=== PATIENT | female | born 1965 | race Caucasian/White ===

== ENCOUNTER 2017-06-12 18:19 | Emergency (ER) | payer OTHER ==
--- NOTE | 2017-06-12 19:14 | ER Document Report ---
ED General - General Chief Complaint: Abscess Stated Complaint: LEG,THROAT PAIN Time Seen by Provider: 06/12/17 18:56 Mode of Arrival: Ambulatory Information source: Patient TRAVEL OUTSIDE OF THE [place] IN LAST 30 DAYS: No - HPI Patient complains to provider of: Swelling to legs, sore throat Notes: Patient is a 51-year-old female who presents to the emergency room today complaining of bumpy swelling to her lower extremities that has been going on for quite some time but seems to be worsening over the past few weeks, they are nonpainful, she denies any injury, no redness, no drainage, she also complains of difficulty swallowing her own spit at times with a sore throat, she states she is able to eat and drink okay, denies any acid reflux, no history of any thyroid disorder, patient reports some intermittent chest pain which has not occurred at all today, she denies any shortness of breath, no cough, cold or congestion, no fever or chills - Related Data Allergies/Adverse Reactions: No Known Allergies Allergy (Verified 06/12/17 18:34) Past Medical History - General Information source: Patient - Social History Smoking Status: Unknown if Ever Smoked Family History: CAD - father and brother had SD's in their late 40's - Past Medical History Cardiac Medical History: Reports: Hx Hypercholesterolemia, Hx Hypertension - previously took meds but was taken off Denies: Hx Coronary Artery Disease, Hx Heart Attack Pulmonary Medical History: Denies: Hx Asthma, Hx Bronchitis, Hx COPD, Hx Pneumonia Neurological Medical History: Denies: Hx Cerebrovascular Accident, Hx Seizures Renal/ Medical History: Denies: Hx Peritoneal Dialysis Musculoskeltal Medical History: Denies Hx Arthritis Past Surgical History: Reports: Hx Abdominal Surgery - Immunizations Immunizations up to date: Yes Hx Diphtheria, Pertussis, Tetanus Vaccination: Yes Review of Systems - Review of Systems Constitutional: No symptoms reported EENT: See HPI Cardiovascular: No symptoms reported Respiratory: No symptoms reported Gastrointestinal: No symptoms reported Genitourinary: No symptoms reported Female Genitourinary: No symptoms reported Musculoskeletal: See HPI Skin: No symptoms reported Hematologic/Lymphatic: No symptoms reported Neurological/Psychological: No symptoms reported -: Yes All other systems reviewed and negative Physical Exam - Vital signs Vitals: Temp Pulse Resp BP Pulse Ox 98.7 F 97 18 146/109 H 99 06/12/17 18:32 06/12/17 18:32 06/12/17 18:32 06/12/17 18:32 06/12/17 18:32 - Notes Notes: - General General appearance: Appears well, Alert In distress: None - HEENT Head: Normocephalic, Atraumatic Eyes: Normal Conjunctiva: Normal Extraocular movements intact: Yes Eyelashes: Normal Pupils: PERRL - Respiratory Respiratory status: No respiratory distress - Cardiovascular Rhythm: Regular - Abdominal Inspection: Normal - Back Back: Normal - Extremities General upper extremity: Normal inspection General lower extremity: Normal inspection - Neurological Neuro grossly intact: Yes Orientation: AAOx4 Richy Coma Scale Eye Opening: Spontaneous [place] Coma Scale Verbal: Oriented [place] Coma Scale Motor: Obeys Commands [place] Coma Scale Total: 15 - Psychological Associated symptoms: Normal affect, Normal mood - Skin Skin Temperature: Warm Skin Moisture: Dry Skin Color: Normal - HEENT Pharynx: Normal. No: Erythema, Exudate, Uvular edema, Potential airway comprom. Neck: Normal. No: Lymphadenopathy, Neck mass, Thyroid nodule, Thyromegally - Extremities General lower extremity: Other - Varicose veins present in lower extremities which are easily compressible, nontender, no erythema Course - Re-evaluation Re-evalutation: 06/12/17 19:17 Patient's physical exam findings are unremarkable except for lower extremity varicose veins, she has had intermittent chest pain but none today, and states she would prefer to follow-up with her primary care provider in the next 1-2 days, advised to return if symptoms worsen, patient acknowledges understanding and agreement with this plan - Vital Signs Vital signs: Temp Pulse Resp BP Pulse Ox 98.7 F 97 18 146/109 H 99 06/12/17 18:32 06/12/17 18:32 06/12/17 18:32 06/12/17 18:32 06/12/17 18:32 Discharge - Discharge Clinical Impression: Varicose veins of both lower extremities, Sore throat Condition: Stable Disposition: HOME, SELF-CARE Instructions: Sore Throat ([facility]), Varicose Veins ([facility]) Additional Instructions: Follow up with your primary care provider in one to 2 days. Return to the emergency room immediately if symptoms worsen or any additional concerns.
[2017-06-12 19:56] VITALS: BP 144/78
== END 2017-06-12 19:56 | disposition home or self-care (01) ==
LOC: ER 18:19
DX: I83.93 Asymptomatic varicose veins of bilateral lower extremities (principal); L02.419 Cutaneous abscess of limb, unspecified; R07.0 Pain in throat
CPT/HCPCS: 99283

== ENCOUNTER 2017-08-18 06:53 | Emergency (ER) | payer OTHER ==
[2017-08-18 07:02] VITALS: BP 134/78
--- NOTE | 2017-08-18 07:08 | ER Document Report ---
HPI - HPI Patient complains to provider of: Left low back pain Onset: Other - July 02 Onset/Duration: Persistent, Waxing and waning, Worse Quality of pain: Burning, Stabbing, Throbbing Pain Level: 5 Context: 51-year-old female complaining of left low back pain over the sacral iliac joint which radiates into her left hip and down her left leg. She was given Motrin and Flexeril by her primary care doctor at [facility]. She was also given a week of steroids which did not help. No fever, no IV drug use, no saddle anesthesia. Associated Symptoms: None Exacerbated by: Movement Relieved by: Denies - ROS ROS below otherwise negative: Yes Systems Reviewed and Negative: Yes All other systems reviewed and negative - REPRODUCTIVE Reproductive: DENIES: : Past Medical History - General Information source: Patient - Social History Smoking Status: Current Every Day Smoker Frequency of alcohol use: None Drug Abuse: None Occupation: property supervisor Lives with: Spouse/Significant other Family History: CAD - father and brother had WI's in their late 40's - Past Medical History Cardiac Medical History: Reports: Hx Hypercholesterolemia, Hx Hypertension - previously took meds but was taken off Renal/ Medical History: Denies: Hx Peritoneal Dialysis Past Surgical History: Reports: Hx Abdominal Surgery - Immunizations Immunizations up to date: Yes Hx Diphtheria, Pertussis, Tetanus Vaccination: Yes Vertical Provider Document - CONSTITUTIONAL Agree With Documented VS: Yes Exam Limitations: No Limitations General Appearance: Mild Distress - INFECTION CONTROL TRAVEL OUTSIDE OF THE [place] IN LAST 30 DAYS: No - HEENT HEENT: Normocephalic - NECK Neck: Supple - RESPIRATORY Respiratory: Breath Sounds Normal, No Respiratory Distress O2 Sat by Pulse Oximetry: 99 - CARDIOVASCULAR Cardiovascular: Regular Rate, Regular Rhythm - BACK Back: Normal Inspection Notes: tender left SI joint, overlying muscles - MUSCULOSKELETAL/EXTREMETIES Musculoskeletal/Extremeties: MAEW, FROM, Tender - see above - NEURO Level of Consciousness: Awake, Alert, Appropriate Motor/Sensory: No Motor Deficit, No Sensory Deficit Deep Tendon Reflexes: 2+ - Bilateral ankle and patellar - DERM Integumentary: Warm, Dry, No Rash Course - Re-evaluation Re-evalutation: 08/18/17 08:01 Pain level reduced to 2/5 with downward pressure of left pelvis, laying supine over a pillow, and laying on her side with a pillow between her knees. Have given the patient handout of low back stretches and a referral to chiropractic. 08/18/17 08:03 - Vital Signs Vital signs: Temp Pulse Resp BP Pulse Ox 97.5 F 74 16 134/78 H 99 08/18/17 06:59 08/18/17 06:59 08/18/17 06:59 08/18/17 06:59 08/18/17 06:59 Discharge - Discharge Clinical Impression: Left sacral ileitis, Sciatica Condition: Good Disposition: HOME, SELF-CARE Instructions: Chiropractor, Toradol Injection ([facility]), Ibuprofen (General) ([facility]) , Muscle Relaxers ([facility]) Additional Instructions: warm compress stretches as we discussed see the chiropractor to er if worse Please complete the patient satisfaction survey if you get one, and return it.. If you do not receive a survey, then you can go to the [facility] website, [email or web address] and place your comments about your very good care. Thank you very much. It was a pleasure being your medical provider today. Forms: Return to Work Referrals: ANTHONY GANDHI MD [NO LOCAL MD] - Follow up as needed XIN FORD DC [CHIROPRACTOR] - Follow up as needed
[2017-08-18] MEDS ORDERED: KETOROLAC TROMETHAMINE 60 MG/2 ML SDV IM ONE (07:44)
[2017-08-18] MEDS ORDERED: DIAZEPAM 5 MG TABLET PO ONE (08:28)
[2017-08-18] MEDS ORDERED: OXYCODONE-ACETAMINOPHEN 5-325 MG TABLET PO ONE (08:28)
== END 2017-08-18 08:45 | disposition home or self-care (01) ==
LOC: ER 06:53
DX: M54.30 Sciatica, unspecified side (principal); K52.9 Noninfective gastroenteritis and colitis, unspecified; M54.5 Low back pain; M25.552 Pain in left hip; M79.605 Pain in left leg; Z79.899 Other long term (current) drug therapy; F17.200 Nicotine dependence, unspecified, uncomplicated
CPT/HCPCS: 99283; 96372; J1885

== ENCOUNTER → 2017-09-04 | Outpatient (CLI) | payer OTHER ==
--- NOTE | 2017-09-04 11:19 | WOMENS IMAGING REPORT ---
EXAM DESCRIPTION: 3D SCREENING MAMMO BILAT COMPLETED DATE/TIME: 09/04/2017 8:05 am REASON FOR STUDY: SCREENING MAMMO Z12.31 ENCNTR SCREEN MAMMOGRAM FOR MALIGNANT NEOPLASM OF LANG COMPARISON: None. TECHNIQUE: Standard craniocaudal and mediolateral oblique views of each breast recorded using digita l acquisition and breast tomosynthesis. LIMITATIONS: None. FINDINGS: No masses, calcifications or architectural distortion. No areas of suspicion. Read with the assistance of CAD. .[facility] [place] - R2 Cenova Version 1.3 .[facility] - R2 Cenova Version 1.3 .[facility] - R2 Cenova Version 2.4 .[facility] [place] - R2 Cenova Version 2.4 .[facility] - R2 Twister Doffer Version 9.2 IMPRESSION: NORMAL MAMMOGRAM. BIRADS 1. BREAST DENSITY: b. There are scattered areas of fibroglandular density. BIRAD: 1 NEGATIVE RECOMMENDATION: ROUTINE SCREENING COMMENT: The patient has been notified of the results by letter per SA requirements. Additional no tification policies are in place for contacting patient with suspicious or incomplete findings. Quality ID #[id number]: The [employer] recommends an annual screening mammogram for women aged 40 years or over. This facility utilizes a reminder system to ensure that all patients receive reminder letters, and/or direct phone calls for appointments. This includes reminders for routine scr eening mammograms, diagnostic mammograms, or other Breast Imaging Interventions when appropriate. Th is patient will be placed in the appropriate reminder system. The [employer] (ACR) has developed recommendations for screening MRI of the breast s in certain patient populations, to be used in conjunction with mammography. Breast MRI surveillanc e may be appropriate for women with more than 20% lifetime risk of developing breast cancer as deter mined by genetic testing, significant family history of the disease, or history of mantle radiation f or Hodgkins Disease. ACR Practice Guidelines 2008. DBT Technology DBT is a type of tomographic mammography. With conventional mammography, overlapping breast tissue ma y make lesions difficult to detect, even with good compression. DBT uses an x-ray tube that rotates a round the breast, taking images at different angles. These images are then combined to create thin sl ices of the breast that the radiologist can view as a 3D reconstruction. The [employer] unit can perform full-field digital mammograms (2D imaging); or DBT (3D imaging); or both, in a combination mode that quickly performs both the mammogram and the tomosynthesis scan while the breast is still compressed. PQRS 6045F: Fluoroscopic imaging is not utilized for breast tomosynthesis. TECHNICAL DOCUMENTATION: FINDING NUMBER: (1) ASSESSMENT: (1) JOB ID: [id number] [employer]- All Rights Reserved
== END ==
LOC: WI 07:48
PROVIDERS: ATTEND Family Medicine
DX: Z12.31 Encounter for screening mammogram for malignant neoplasm of breast (principal)
CPT/HCPCS: 77063; G0202; 77067

== ENCOUNTER 2017-11-28 17:35 | Emergency (ER) | payer OTHER ==
[2017-11-28] MEDS ORDERED: LORATADINE 10 MG TABLET PO ONE (18:21)
[2017-11-28] MEDS ORDERED: PSEUDOEPHEDRINE HCL 30 MG TABLET PO ONE (18:21)
[2017-11-28] MEDS ORDERED: GUAIFENESIN 600 MG TABLET.SA PO ONE (18:21)
--- NOTE | 2017-11-28 18:42 | RADIOLOGY REPORT (SQ) ---
EXAM DESCRIPTION: CHEST PA/LAT COMPLETED DATE/TIME: 11/28/2017 6:32 pm REASON FOR STUDY: cough congestion COMPARISON: 03/07/2015 NUMBER OF VIEWS: Two view. TECHNIQUE: Frontal and lateral radiographic views of the chest acquired. LIMITATIONS: None. FINDINGS: LUNGS AND PLEURA: No opacities, masses or pneumothorax. No pleural effusion. MEDIASTINUM AND HILAR STRUCTURES: No masses or contour abnormalities. HEART AND VASCULATURE: Heart normal size. No evidence for failure. BONY STRUCTURES: No acute findings. HARDWARE: None. OTHER: No other significant finding. IMPRESSION: NO SIGNIFICANT RADIOGRAPHIC FINDING IN THE CHEST. TECHNICAL DOCUMENTATION: JOB ID: [id number] [employer]- All Rights Reserved Reading location - IP/workstation name: [email or web address]
--- NOTE | 2017-11-28 18:47 | ER Document Report ---
ED Flu Like - General Chief Complaint: Flu Symptoms Stated Complaint: FLU SYMPTOMS Time Seen by Provider: 11/28/17 17:56 Mode of Arrival: Ambulatory Notes: 52-year-old female presents to ED for complaint of fever chills cough body aches and wheezing 3 days. She states she has having flulike symptoms and did not have a flu shot. Spouse states that she has felt hot but she has not taken her temperature. TRAVEL OUTSIDE OF THE [place] IN LAST 30 DAYS: No - HPI Onset: Other - 3 days Timing/Duration: Intermittent Quality of pain: Achy - Body aches Severity: Moderate Pain Level: 4 CO exposure: No Associated symptoms: Body/muscle aches, Chills, Nonproductive cough, Fever, Rhinnorhea, Sinus pain/drainage, Other - Patient states she has been wheezing Similar symptoms previously: Yes Recently seen / treated by doctor: No - Related Data Allergies/Adverse Reactions: No Known Allergies Allergy (Verified 08/18/17 07:38) Past Medical History - General Information source: Patient - Social History Smoking Status: Former Smoker Cigarette use (# per day): No Chew tobacco use (# tins/day): No Smoking Education Provided: No Frequency of alcohol use: None Drug Abuse: None Occupation: Works at [employer] Lives with: Family Family History: CAD - father and brother had KS's in their late 40's, Hyperlipidemia, Hypertension, Malignancy. denies: Arthritis, COPD, CVA, DM, Thyroid Disfunction Patient has suicidal ideation: No Patient has homicidal ideation: No - Past Medical History Cardiac Medical History: Reports: Hx Hypercholesterolemia, Hx Hypertension - previously took meds but was taken off Pulmonary Medical History: Reports: None EENT Medical History: Reports: None Neurological Medical History: Reports: None Endocrine Medical History: Reports: None Renal/ Medical History: Reports: None Malignancy Medical History: Reports: None GI Medical History: Reports: None Musculoskeltal Medical History: Reports None Skin Medical History: Reports None Psychiatric Medical History: Reports: None Traumatic Medical History: Reports: None Infectious Medical History: Reports: None Past Surgical History: Reports: Other - Removal of nonmalignant skin grafts - Immunizations Immunizations up to date: Yes Hx Diphtheria, Pertussis, Tetanus Vaccination: Yes Review of Systems - Review of Systems Notes: Constitutional: [PRESENT: as per HPI. ABSENT: weight gain, weight loss]Fever chills headache Eyes: [ABSENT: visual disturbances] Ears: [ABSENT: hearing changes] Nasopharyngeal: Runny nose cough congestion Cardiovascular: [ABSENT: chest pain, dyspnea on exertion, edema, orthropnea, palpitations] Respiratory: Nonproductive cough and wheezing Gastrointestinal: [ABSENT: abdominal pain, constipation, diarrhea, hematemesis, hematochezia, nausea, vomiting] Genitourinary: [ABSENT: dysuria, hematuria] Musculoskeletal: [ABSENT: joint swelling] Integumentary: [ABSENT: rash, wounds] Neurological: [ABSENT: abnormal gait, abnormal speech, confusion, dizziness, focal weakness, syncope] Psychiatric: [ABSENT: anxiety, depression, homicidal ideation, suicidal ideation ] Endocrine: [ABSENT: cold intolerance, heat intolerance, menstrual abnormalities , polydipsia, polyuria] Hematologic/Lymphatic: [ABSENT: easy bleeding, easy bruising, lymphadenopathy] Physical Exam - Vital signs Vitals: Temp Pulse BP Pulse Ox 99.3 F 92 157/66 H 98 11/28/17 17:42 11/28/17 17:42 11/28/17 17:42 11/28/17 17:42 - Notes Notes: PHYSICAL EXAMINATION: GENERAL: Well-appearing, well-nourished and in no acute distress. HEAD: Atraumatic, normocephalic. EYES: Pupils equal round and reactive to light, extraocular movements intact, conjunctiva are normal. ENT: Erythematous swollen nasal turbinates, red oropharynx with postnasal drip without exudates. Moist mucous membranes. NECK: Normal range of motion, supple without lymphadenopathy LUNGS: No rales or rhonchi. Mild expiratory wheezes HEART: Regular rate and rhythm without murmurs ABDOMEN: Soft, nontender, nondistended abdomen. No guarding, no rebound. No masses appreciated. Female : deferred Musculoskeletal: Normal range of motion, no pitting or edema. No cyanosis. NEUROLOGICAL: Cranial nerves grossly intact. Normal speech, normal gait. Normal sensory, motor exams PSYCH: Normal mood, normal affect. SKIN: Warm, Dry, normal turgor, no rashes or lesions noted. Course - Re-evaluation Re-evalutation: 11/29/17 01:40 Patient was treated with prednisone and albuterol for her wheezing, Sudafed Mucinex Claritin and Tylenol for her cough and cold symptoms with body aches. Patient was given a prescription for an albuterol inhaler and prednisone. Patient instructed to follow-up with primary doctor. X-rays were negative for any acute changes and was discussed with patient. Report of x-ray given to patient. Patient was able to verbalize understanding of instructions. - Vital Signs Vital signs: Temp Pulse Resp BP Pulse Ox 99.3 F 92 20 140/70 H 96 11/28/17 17:42 11/28/17 19:25 11/28/17 19:25 11/28/17 19:25 11/28/17 19:25 - Diagnostic Test Radiology reviewed: Image reviewed, Reports reviewed Discharge - Discharge Clinical Impression: URI (upper respiratory infection) Qualifiers: URI type: unspecified URI Qualified Code(s): J06.9 - Acute upper respiratory infection, unspecified Condition: Stable Disposition: HOME, SELF-CARE Instructions: Family Physicians / Practices Additional Instructions: UPPER RESPIRATORY ILLNESS: You have a viral infection of the respiratory passages -- a "cold." This common infection causes nasal congestion, drainage, and often sore throat and cough. It is highly contagious. The disease usually lasts about 10 to 14 days. There is no "cure" for the viral infection -- it must run its course. If there is a complication, such as bacterial infection in the nose, sinuses, middle ear, or bronchial tubes, antibiotics may be required. The antibiotics won't affect the virus. Drink plenty of fluids. A humidifier may help. An expectorant medication or decongestant may make you more comfortable. Use acetaminophen or ibuprofen for fever or aches. See the doctor if fever persists over two days, if there is any significant worsening of your symptoms, or if you simply fail to improve as expected. BRONCHOSPASM: You have tightness in the bronchial tubes, called bronchospasm. This often occurs with bronchial infections. Allergies, inhaled chemicals, and polluted or cold air can also provoke bronchospasm. It's more likely in patients with asthma in the family. Emergency treatment of bronchospasm may include adrenaline shots or bronchodilator aerosol. You may feel lightheaded and have a rapid pulse for an hour or two. Rest and get plenty of fluids. At home, we'll treat you with a bronchodilator inhaler. Antibiotics and corticosteroids may be required for some patients. Until you recover, avoid chemical fumes, dusts, pollens, and exercising in very cold or dry air. If you smoke, stop now!! If you develop a fever, increased wheezing, chest pain, or severe shortness of breath, you should contact the doctor immediately. DECONGESTANT MEDICATION: A decongestant medicine has been prescribed. Often this medicine is combined in the same tablet with an antihistamine or expectorant. This type of medicine is helpful in treating a bad cold or sinus condition, as well as in treatment of the nasal congestion of hay fever. It is not of much benefit for lung infections. Decongestant medicines are related to stimulants. They can cause an increase in blood pressure and heart rate. Persons with heart disease and high blood pressure should not take decongestants without discussing this with the physician. If you develop palpitations, chest pain, headache, or tremors, stop the medicine and consult your physician. COUGH-SUPPRESSANT & EXPECTORANT MEDICATION: You are to use a cough medication as needed for relief of symptoms. This medicine is a combination of an expectorant (to make the mucous thinner and more easily "coughed up") and a cough suppressant (to reduce the frequency of coughing). The cough-suppressant medicine is related to narcotics. You may experience mild nausea and sleepiness. Some patients who are very sensitive to narcotics may have stomach pain from this medicine. Taking the medicine with food reduces these side effects. Do not drive or work with machinery until you know how this medicine affects you. The expectorant should have no side effects. Iodine-containing expectorants (such as organidin) should not be taken by persons with active thyroid disease unless approved by your doctor. Call the doctor if you develop shortness of breath, hives, rash, itching, lightheadedness, or severe nausea and vomiting. INHALED BRONCHODILATORS: You have received a treatment of and/or prescription for an inhaled bronchodilator -- a medication which stimulates the airways in the lung to dilate. This improves the flow of air in asthma, bronchitis, and emphysema. These medicines have some similarity to adrenaline, and can cause similar side effects: shakiness, racing heart, and a sense of nervousness. These side effects decrease with time. Contact your doctor if these side effects are severe. Do not over-use the medicine. Too-frequent use of the inhaler may make it ineffective. Call your doctor if the inhaler is not controlling your symptoms at the prescribed doses. STEROID MEDICATION: You have been given an injection of or oral medicine of the cortisone/ steroid class. This medication is used to control inflammation or allergy. Raj t is usually only given for a short period of time, until the acute process subsides. There are usually no side effects from short-term use of cortisone-like medications. Some persons feel an increased sense of well-being and are not sleepy at bedtime. Long-term use of cortisone medications is best avoided, unless required for a severe condition. If your condition does not remit, or relapses after the course of corticosteroid medication, you should consult your physician. USE OF ACETAMINOPHEN (Tylenol): Acetaminophen may be taken for pain relief or fever control. It's much safer than aspirin, offering a wider range of "safe" dosages. It is safe during . Some brand names are Tylenol, Panadol, Datril, Anacin 3, Tempra, and Liquiprin. Acetaminophen can be repeated every four hours. The following are maximum recommended dosages: >89 pounds or adults 650 mg to 900 mg Acetaminophen can be repeated every four hours. Maximum dose not to exceed 4000 mg a day. FOLLOW-UP CARE: If you have been referred to a physician for follow-up care, call the physician s office for an appointment as you were instructed or within the next two days. If you experience worsening or a significant change in your symptoms, notify the physician immediately or return to the Emergency Department at any time for re-evaluation. Prescriptions: Albuterol Sulfate [Proair HFA Inhalation Aerosol 8.5 gm MDI] 2 puff IH Q4H PRN # 1 mdi PRN Reason: Prednisone 10 mg PO ASDIR PRN #21 tablet PRN Reason: Forms: Elevated Blood Pressure, Return to Work
[2017-11-28] MEDS ORDERED: PREDNISONE 20 MG TABLET PO ONE (18:48)
[2017-11-28] MEDS ORDERED: ACETAMINOPHEN 325 MG TABLET PO ONE (18:57)
[2017-11-28] MEDS: ALBUTEROL SULFATE 0.083% NEB 2.5 MG/3 ML AMPUL NEB SCH ×2 (19:07→19:47)
[2017-11-28 19:52] VITALS: BP 140/70
== END 2017-11-28 19:25 | disposition home or self-care (01) ==
LOC: ER 17:35
DX: R05 Cough (principal); R06.2 Wheezing; M79.1 Myalgia; R50.9 Fever, unspecified; J34.89 Other specified disorders of nose and nasal sinuses; I10 Essential (primary) hypertension; R09.82 Postnasal drip; J06.9 Acute upper respiratory infection, unspecified; Z87.892 Personal history of anaphylaxis
CPT/HCPCS: 99283; 71046; J7512

== ENCOUNTER 2019-12-11 19:05 | Emergency (ER) | payer OTHER ==
[2019-12-11] MEDS ORDERED: ASPIRIN 81 MG TABLET, CHEWABLE PO ONE (20:08)
--- NOTE | 2019-12-11 20:11 | ER Document Report ---
ED Medical Screen (RME) - General Chief Complaint: Chest Pain Stated Complaint: CHEST PAIN Time Seen by Provider: 12/11/19 20:05 Mode of Arrival: Ambulatory Information source: Patient Notes: 54-year-old female presents emergency department with multiple complaints to include chest pain that started today left-sided with cough congestion no bleeding. No complaints of fever vomiting diarrhea. Reports she has been eating cough drops without relief of symptoms. Patient reports she is had this chest pain on and off for years. Patient reports this chest pain has been for the past week. Reports she was admitted here many years ago and told to go to [facility] for a stress test. She never did. Patient reports the chest pain will radiate down to her legs at times if she became nauseated and sweaty. I have greeted and performed a rapid initial assessment of this patient. A comprehensive ED assessment and evaluation of the patient, analysis of test results and completion of the medical decision making process will be conducted by additional ED providers. TRAVEL OUTSIDE OF THE [place] IN LAST 30 DAYS: No - Related Data Allergies/Adverse Reactions: No Known Allergies Allergy (Verified 08/18/17 07:38) Past Medical History - Past Medical History Cardiac Medical History: Reports: Hx Hypercholesterolemia, Hx Hypertension - previously took meds but was taken off Renal/ Medical History: Denies: Hx Peritoneal Dialysis Past Surgical History: Reports: Other - Removal of nonmalignant skin grafts - Immunizations Immunizations up to date: Yes Hx Diphtheria, Pertussis, Tetanus Vaccination: Yes
--- NOTE | 2019-12-11 20:44 | RADIOLOGY REPORT (SQ) ---
EXAM DESCRIPTION: XR CHEST 2 VIEWS COMPLETED DATE/TME: 12/11/2019 20:07 CLINICAL HISTORY: 54 years, Female, dhest pain COMPARISON: November 28, 2017 NUMBER OF VIEWS: 2 TECHNIQUE: LIMITATIONS: None. FINDINGS: The lungs are grossly clear. Minimal atelectasis left lung base. No consolidation or effusion or pneumothorax. IMPRESSION: Mild atelectasis left base, adverse change from prior copyright 2010 [employer]- All Rights Reserved
[2019-12-11 22:31] LABS: ABSOLUTE EOSINOPHILS # (AUTO) 0.1 10^3/uL (0.0-0.6); ABSOLUTE LYMPHOCYTES (AUTO) 2.1 10^3/uL (0.5-4.7); ABSOLUTE MONOCYTES (AUTO) 0.7 10^3/uL (0.1-1.4); ABSOLUTE NEUT (AUTO) 5.4 10^3/uL (1.7-8.2); BASOPHILS % (AUTO) 0.4 % (0-2); EOSINOPHILS % (AUTO) 1.7 % (0-6); HEMATOCRIT 36.7 % (36.0-47.0); HEMOGLOBIN 12.8 g/dL (12.0-15.5); LYMPHOCYTES % (AUTO) 25.2 % (13-45); MEAN CORPUSCULAR HEMOGLOBIN 28.9 pg (27.0-33.4); MEAN CORPUSCULAR HGB CONC 34.9 g/dL (32.0-36.0); MEAN CORPUSCULAR VOLUME 83 fl (80-97); MONOCYTES % (AUTO) 8.8 % (3-13); PLATELET COUNT 275 10^3/uL (150-450); RED BLOOD COUNT 4.43 10^6/uL (3.72-5.28); RED CELL DISTRIBUTION WIDTH 13.6 % (11.5-14.0); SEGMENTED NEUTROPHILS % (AUTO) 63.9 % (42-78); TOTAL CELLS COUNTED % (AUTO) 100 %; WHITE BLOOD COUNT 8.4 10^3/uL (4.0-10.5)
[2019-12-11 22:39] LABS: APPEARANCE,URINE CLOUDY; BILIRUBIN,URINE NEGATIVE (NEGATIVE); COLOR,URINE AMBER; GLUCOSE, URINE NEGATIVE (NEGATIVE); KETONES,URINE NEGATIVE (NEGATIVE); LEUKOCYTE ESTERASE,URINE MODERATE (NEGATIVE); NITRITE,URINE POSITIVE (NEGATIVE); PROTEIN,URINE NEGATIVE (NEGATIVE)
[2019-12-11 22:48] LABS: ADD MANUAL MICROSCOPIC YES
[2019-12-11 22:49] LABS: BACTERIA,URINE 3+ /HPF
[2019-12-11 22:52] LABS: ALBUMIN 4.3 g/dL (3.5-5.0); ALKALINE PHOSPHATASE 112 U/L (38-126); ANION GAP 12 (5-19); ASPARTATE AMINO TRANSFERASE 35 U/L (14-36); BILIRUBIN,DIRECT 0.2 mg/dL (0.0-0.4); BILIRUBIN,TOTAL 0.9 mg/dL (0.2-1.3); BLOOD UREA NITROGEN 12 mg/dL (7-20); CALCIUM 9.6 mg/dL (8.4-10.2); CARBON DIOXIDE 27 mmol/L (22-30); CHLORIDE 97 mmol/L (98-107); GLUCOSE 104 mg/dL (75-110); POTASSIUM 3.6 mmol/L (3.6-5.0); TOTAL PROTEIN 7.7 g/dL (6.3-8.2)
[2019-12-12] MEDS ORDERED: BENZONATATE 100 MG CAPSULE PO ONE (00:48)
--- NOTE | 2019-12-12 01:07 | ER Document Report ---
ED General - General Chief Complaint: Chest Pain Stated Complaint: CHEST PAIN Time Seen by Provider: 12/11/19 20:05 Mode of Arrival: Ambulatory Notes: 54-year-old female presents emergency department complaining of nasal congestion, cough, intermittent nosebleeds, left-sided chest pain with cough for the past week. Denies using any nasal steroids. Complains of sweats and chills and her states she is been warm to the touch. Has not actually checked her temperature. Admits some mild epigastric abdominal pain with cough but denies any other pain. Denies frequency, dysuria, hematuria or flank pain. Adm its posttussive nausea but denies any vomiting. States that she has been having intermittent chest pain for several years, it is only worse when she coughs otherwise it is unchanged, states she had a stress test within the past 2 years and it was negative. TRAVEL OUTSIDE OF THE [place] IN LAST 30 DAYS: No - Related Data Allergies/Adverse Reactions: No Known Allergies Allergy (Verified 08/18/17 07:38) Past Medical History - General Information source: Patient - Social History Smoking Status: Former Smoker Chew tobacco use (# tins/day): No Frequency of alcohol use: None Drug Abuse: None Family History: CAD - father and brother had IL's in their late 40's, Hyperlipidemia, Hypertension, Malignancy. denies: Arthritis, COPD, CVA, DM, Thyroid Disfunction Patient has suicidal ideation: No Patient has homicidal ideation: No - Past Medical History Cardiac Medical History: Reports: Hx Hypercholesterolemia, Hx Hypertension - previously took meds but was taken off Renal/ Medical History: Denies: Hx Peritoneal Dialysis Past Surgical History: Reports: Other - Removal of nonmalignant skin grafts - Immunizations Immunizations up to date: Yes Hx Diphtheria, Pertussis, Tetanus Vaccination: Yes Review of Systems - Review of Systems Constitutional: See HPI, Chills, Diaphoresis EENT: See HPI, Nose congestion, Nose discharge Cardiovascular: Chest pain. denies: Palpitations, Heart racing, Dizziness Respiratory: See HPI, Cough. denies: Hemoptysis, Short of breath Gastrointestinal: See HPI, Nausea Genitourinary: No symptoms reported -: Yes All other systems reviewed and negative Physical Exam - Vital signs Vitals: Temp Pulse Resp BP Pulse Ox 100.0 F 92 24 H 131/98 H 93 12/11/19 19:46 03/11/20 19:46 12/11/19 19:46 12/11/19 19:46 12/11/19 19:46 Interpretation: Tachypneic - Notes Notes: GENERAL: Alert, interacts well. No acute distress. HEAD: Normocephalic, atraumatic EYES: Pupils equal, round and reactive to light, extraocular movements intact. ENT: Oral mucosa moist, tongue midline. Nares patent, no nasal septal hematoma, TMs intact. Clear rhinorrhea, dried blood at the opening to the left nostril, no active bleeding, no masses. NECK: Full range of motion, supple, trachea midline. LUNGS: rhonchi on left, dimished breath sounds on left, wet cough, no wheezes. . HEART: Regular rate and rhythm, no murmurs, gallops, rubs. ABDOMEN: Soft, nontender, nondistended, bowel sounds present in all 4 quadrants. EXTREMITIES: Moves all 4 extremities spontaneously, no edema, radial and dorsalis pedis pulses 2/4 bilaterally. No cyanosis. NEUROLOGICAL: Alert and oriented x3, normal speech. PSYCH: Normal mood, normal affect. SKIN: Warm, Dry, normal turgor, no rashes or lesions noted. Course - Re-evaluation Re-evalutation: 12/12/19 02:15 CBC unremarkable, CMP grossly unremarkable, troponin negative x2, urinalysis shows moderate blood, positive nitrates, moderate leukocyte esterase but only 1- 5 urine WBCs, 3+ bacteria, few squamous epithelial cells. Patient denies absolutely any urinary symptoms whatsoever. This appears to be colonization rather than true infection, chest x-ray shows atelectasis in the left base however given the patient's symptoms and the fact that she has having worsening symptoms, productive cough, worsening pain on the left-hand side I do think it is prudent to treat this as pneumonia rather than atelectasis. Patient will be treated with antibiotics and discharged to home. - Vital Signs Vital signs: Temp Pulse Resp BP Pulse Ox 98.0 F 72 20 112/51 L 99 12/12/19 00:17 12/12/19 00:17 12/12/19 01:01 12/12/19 01:01 12/12/19 01:01 - Laboratory Result Diagrams: 12/11/19 22:05 12/11/19 22:05 Laboratory results interpreted by me: 12/11/19 12/11/19 22:05 22:05 Sodium 136.1 L Chloride 97 L Urine Blood MODERATE H Urine Nitrite POSITIVE H Urine Urobilinogen 2.0 H Ur Leukocyte Esterase MODERATE H - EKG Interpretation by Me Additional EKG results interpreted by me: 12/12/19 02:36 EKG shows sinus rhythm at a rate of 83, LVH, borderline prolonged QT interval, left axis deviation, no ST segment elevations or depressions, there are T wave inversions noted in V2 through V5 with flattening in V6 per my interpretation. Discharge - Discharge Clinical Impression: Left lower lobe pneumonia Qualifiers: Pneumonia type: due to unspecified organism Qualified Code(s): J18.9 - Pneumonia, unspecified organism Condition: Stable Disposition: HOME, SELF-CARE Additional Instructions: Pneumonia Your examination indicates that you have pneumonia. This is an infection of the lung tissue, usually caused by bacteria or a virus. Symptoms include cough, fever, shaking chills, chest pain, shortness of breath, and coughing up bloody sputum. Treatment for bacterial pneumonia includes rest, antibiotics, increasing your clear liquid intake, a cool mist humidifier at your bedside, and fever medication. Often, a repeat chest X-ray is performed in a few weeks--even if you feel better--to ascertain whether the infection has completely resolved and no underlying lung problem is present. You should call the physician if you develop persistent vomiting, high fever that does not respond to fever medication, increasing shortness of breath, confusion, or lethargy. Also, failure to improve within two to three days is an indication for re-examination. Please use nasal saline rinses such as a NetiPot or NeilMed Sinus Rinses. Please use nasal steroid such as Nasonex 1 squirt per nostril twice a day to decrease inflammation and swelling. Please also use [id number] decongestants according to their directions on the box such as Sudafed during the day and Benadryl at night. Prescriptions: Azithromycin [Zithromax 250 mg Tablet] 250 mg PO ASDIR PRN #6 tablet PRN Reason: Forms: Return to Work
[2019-12-12 02:56] VITALS: BP 128/68
--- NOTE | 2019-12-12 10:00 | EKG REPORT ---
SEVERITY:- ABNORMAL ECG - SINUS RHYTHM LEFT VENTRICULAR HYPERTROPHY BORDERLINE PROLONGED QT INTERVAL NONSPECIFIC T CHANGES : Confirmed by: Navya Eldridge 12-Dec-2019 09:59:11
== END 2019-12-12 02:56 | disposition home or self-care (01) ==
LOC: ER 19:05
DX: J18.9 Pneumonia, unspecified organism (principal); R07.9 Chest pain, unspecified; R09.81 Nasal congestion
CPT/HCPCS: 36415; 71046; 80053; 81001; 84484; 85025; 93005; 93010; 99285